=== PATIENT | male | born 1950 | race Caucasian/White ===

== ENCOUNTER 2017-03-01 14:37 | Inpatient (IN) | payer OTHER, MEDICARE ==
[~2017-03-01] VITALS: Ht 177.8 cm; Wt 88.3 kg
[2017-03-01] VITALS (8 sets, daily range): BP systolic 106–179; BP diastolic 63–83; PULSE 81–132; RESP 14–20; TEMP 97–103.1; O2SAT 95–97
[~2017-03-01 14:37] MED LIST: CYCL-36 PO; DICL75 PO; Z.0.NO CURRENT MEDS
[2017-03-01] MEDS ORDERED: FLUT50SP EACH NARE (14:57)
[2017-03-01] MEDS ORDERED: [UNRECOGNIZED DRUG - REMARK] (14:57)
[2017-03-01] MEDS ORDERED: [UNRECOGNIZED DRUG - REMARK] (14:57)
[2017-03-01] MEDS ORDERED: ONE-TAB PO (14:57)
--- NOTE | 2017-03-01 15:13 | PD ---
HPI Chief Complaint: Cold / Flu Symptoms Time Seen by Provider: 15:07 Travel History International Travel<30 days: No Contact w/Intl Traveler<30days: No Traveled to known affect area: No History of Present Illness HPI This 66-year-old male is had a hacking cough for about a year. He says he coughs for periods of time is quite severe. He often vomits after coughing and vomits a large amount of mucus. He saw his doctor and was given some nasal spray which has not helped. He does not smoke cigarettes. Today he had quite a bad paroxysm of coughing and then he vomited 5 or 6 times. He has a history of hereditary hemachromatosis and gets blood removed every 3 months. He recently saw his doctor for rectal bleeding and this has a follow-up appointment with a GI doctor. Today he has a fever which is usually not part of his coughing spells. He does not recall having a chest x-ray during this year that he's been coughing PFSH Past Medical History High Cholesterol: Yes Diminished Hearing: No Musculoskeletal: Yes (OCCASIONAL BACK PAIN) Tetanus Vaccination: Unknown Influenza Vaccination: No Past Surgical History Surgical History: No Previous Surgery Social History Alcohol Use: Yes (6 daily) Tobacco Use: No Substance Use: No Allergies-Medications (Allergen,Severity, Reaction): Coded Allergies: No Known Allergies (Verified Adverse Reaction, Unknown, 03/01/17) Reported Meds & Prescriptions Reported Meds & Active Scripts Active Reported ["Triglyceride Pill"] One-A-Day Essential (Multiple Vitamin) 1 Tab 1 Tab PO DAILY ["Sinus Allergy Pill"] Fluticasone Nasal [place] 50 Mcg/Act Naspr 100 Mcg EACH NARE BID 50 mcg/spray Review of Systems General / Constitutional: Positive: Fever, Chills Eyes: No: Diploplia, Blurred Vision HENT: No: Headaches, Vertigo Cardiovascular: No: Chest Pain or Discomfort, Palpitations Respiratory: Positive: Cough, No: Wheezing Gastrointestinal: No: Nausea, Vomiting Genitourinary: No: Urgency, Frequency Musculoskeletal: No: Myalgias, Arthralgias Skin: No Rash Endocrine: No: Heat Intolerance Hematologic/Lymphatic: No: Easy Bruising Physical Exam Narrative GENERAL: Well-developed male. Temp is 103. Pulse is 120 SKIN: Focused skin assessment warm/dry. HEAD: Atraumatic. Normocephalic. EYES: Pupils equal and round. No scleral icterus. No injection or drainage. ENT: No nasal bleeding or discharge. Mucous membranes pink and moist. NECK: Trachea midline. No JVD. CARDIOVASCULAR: Regular rate and rhythm. No murmur appreciated. RESPIRATORY: No accessory muscle use. Clear to auscultation. There are a few scattered rales GASTROINTESTINAL: Abdomen soft, non-tender, nondistended. Hepatic and splenic margins not palpable. MUSCULOSKELETAL: No obvious deformities. No clubbing. No cyanosis. No edema. NEUROLOGICAL: Awake and alert. No obvious cranial nerve deficits. Motor grossly within normal limits. Normal speech. PSYCHIATRIC: Appropriate mood and affect; insight and judgment normal. Data Data Last Documented VS Vital Signs Date Time Temp Pulse Resp B/P (MAP) Pulse Ox O2 Delivery O2 Flow Rate FiO2 03/01/17 14:57 103.1 117 18 154/69 (97) 97 Room Air Orders Orders Complete Blood Count With Diff (03/01/17 15:07) Comprehensive Metabolic Panel (03/01/17 15:07) Lactic Acid Sepsis Protocol (03/01/17 15:07) Urinalysis - C+S If Indicated (03/01/17 15:07) Influenzae A/B Antigen (03/01/17 15:07) Blood Culture (03/01/17 15:07) Chest, Pa & Lat (03/01/17 15:07) Blood Glucose (03/01/17 15:07) Ecg Monitoring (03/01/17 15:07) Iv Access Insert/Monitor (03/01/17 15:07) Oximetry (03/01/17 15:07) Acetaminophen (Tylenol) (03/01/17 15:15) Sodium Chlor 0.9% 1000 Ml Inj (Ns 1000 M (03/01/17 15:15) Ceftriaxone Inj (Rocephin Inj) (03/01/17 15:44) Azithromycin Inj (Zithromax Inj) (03/01/17 15:44) Labs Laboratory Tests Test 03/01/17 15:22 03/01/17 15:36 White Blood Count 8.1 TH/MM3 Red Blood Count 4.59 MIL/MM3 Hemoglobin 14.8 GM/DL Hematocrit 43.1 % Mean Corpuscular Volume 93.7 FL Mean Corpuscular Hemoglobin 32.1 PG Mean Corpuscular Hemoglobin Concent 34.3 % Red Cell Distribution Width 14.0 % Platelet Count 182 TH/MM3 Mean Platelet Volume 8.0 FL Neutrophils (%) (Auto) 90.2 % Lymphocytes (%) (Auto) 2.7 % Monocytes (%) (Auto) 5.9 % Eosinophils (%) (Auto) 0.1 % Basophils (%) (Auto) 1.1 % Neutrophils # (Auto) 7.3 TH/MM3 Lymphocytes # (Auto) 0.2 TH/MM3 Monocytes # (Auto) 0.5 TH/MM3 Eosinophils # (Auto) 0.0 TH/MM3 Basophils # (Auto) 0.1 TH/MM3 CBC Comment DIFF FINAL Differential Comment Blood Urea Nitrogen 16 MG/DL Creatinine 1.30 MG/DL Random Glucose 92 MG/DL Total Protein 7.8 GM/DL Albumin 3.6 GM/DL Calcium Level 8.9 MG/DL Alkaline Phosphatase 76 U/L Aspartate Amino Transf (AST/SGOT) 28 U/L Alanine Aminotransferase (ALT/SGPT) 38 U/L Total Bilirubin 1.2 MG/DL Sodium Level 139 MEQ/L Potassium Level 3.7 MEQ/L Chloride Level 106 MEQ/L Carbon Dioxide Level 21.5 MEQ/L Anion Gap 12 MEQ/L Estimat Glomerular Filtration Rate 55 ML/MIN Lactic Acid Level 3.2 mmol/L [facility] Medical Decision Making Medical Screen Exam Complete: Yes Emergency Medical Condition: Yes Medical Record Reviewed: Yes Differential Diagnosis Differential includes sepsis, pneumonia, otitis Narrative Course 3 shows patchy right lower lobe airspace disease concerning for pneumonia. His white count is only 8000. His lactate level is 3.2. He's been given IV fluids. Antibiotics have been initiated. He will be admitted Diagnosis Primary Impression: Pneumonia Qualified Codes: J18.1 - Lobar pneumonia, unspecified organism Additional Impression: Sepsis Qualified Codes: A41.9 - Sepsis, unspecified organism Admitting Information Admitting Physician Requests: Admit Grupo Bartholomew MD Mar 01, 2017 15:13
[2017-03-01] MEDS ORDERED: SODIUM CHLOR 0.9% 1000 ML INJ 1,000 ML IV ONE ×2 (15:15→16:15)
[2017-03-01] MEDS ORDERED: ACETAMINOPHEN 325 MG TAB PO ONE (15:15)
[2017-03-01] MEDS ORDERED: cefTRIAXone INJ 2,000 MG in SODIUM CHLORIDE 0.9% INJ 100 ML IV STA (15:44)
[2017-03-01] MEDS ORDERED: AZITHROMYCIN INJ 500 MG in SODIUM CHLOR 0.9% 250 ML INJ 250 ML IV STA (15:44)
[2017-03-01 15:47] LABS: AUTOMATED NEUTROPHIL # 7.3 TH/MM3 (1.8-7.7); BASOPHIL # 0.1 TH/MM3 (0-0.2); BASOPHIL % 1.1 % (0.0-2.0); EOSINOPHIL % 0.1 % (0.0-4.0); HEMATOCRIT 43.1 % (39.0-51.0); HEMOGLOBIN 14.8 GM/DL (13.0-17.0); LYMPH % 2.7 % (9.0-44.0); LYMPHOCYTE # 0.2 TH/MM3 (1.0-4.8); MEAN CELL VOLUME 93.7 FL (80.0-100.0); MEAN CORPUSCULAR HEMOGLOBIN 32.1 PG (27.0-34.0); MEAN CORPUSCULAR HGB CONC 34.3 % (32.0-36.0); MONO % 5.9 % (0.0-8.0); MONOCYTE # 0.5 TH/MM3 (0-0.9); NEUT % 90.2 % (16.0-70.0); PLATELET COUNT 182 TH/MM3 (150-450); RED BLOOD COUNT 4.59 MIL/MM3 (4.50-5.90); WHITE BLOOD COUNT 8.1 TH/MM3 (4.0-11.0)
[2017-03-01 15:50] LABS: CHLORIDE 106 MEQ/L (98-107); SODIUM (NA) 139 MEQ/L (136-145)
--- NOTE | 2017-03-01 15:52 | RADRPT ---
EXAM DATE/TIME: 03/01/2017 15:18 [place] COMPARISON: No previous studies available for comparison. INDICATIONS : Fever, cough. MEDICAL HISTORY : None. SURGICAL HISTORY : None. ENCOUNTER: Initial ACUITY: 1 year PAIN SCORE: 0/10 LOCATION: Bilateral chest FINDINGS: Patchy right lower lobe airspace disease. Cardiomediastinal contours are within normal limits. Bony t horax is intact. CONCLUSION: 1. Patchy right lower lobe airspace disease concerning for pneumonia given symptoms. Dannie Mireles MD on March 01, 2017 at 15:49 Board Certified Radiologist. This report was verified electronically.
[2017-03-01 15:53] LABS: CALCIUM 8.9 MG/DL (8.5-10.1)
[2017-03-01 15:54] LABS: ALBUMIN 3.6 GM/DL (3.4-5.0); BICARBONATE 21.5 MEQ/L (21.0-32.0); BLOOD UREA NITROGEN 16 MG/DL (7-18); GLUCOSE,RANDOM 92 MG/DL (74-106)
[2017-03-01 15:57] LABS: ALT (GPT) 38 U/L (12-78); AST (GOT) 28 U/L (15-37); GLOMERULAR FILTRATION RATE 55 ML/MIN (>89)
[2017-03-01 15:59] LABS: TOTAL BILIRUBIN ADULT 1.2 MG/DL (0.2-1.0); TOTAL PROTEIN 7.8 GM/DL (6.4-8.2)
[2017-03-01 16:00] LABS: BILIRUBIN, URINE NEG (NEG); BLOOD, URINE MOD (NEG); GLUCOSE,URINE NEG (NEG); KETONE, URINE NEG (NEG); NITRITE,URINE NEG (NEG); PH, URINE 5.5 (5.0-8.5); URINE LEUKOCYTE ESTERASE NEG (NEG)
[2017-03-01 16:00] LABS: ALKALINE PHOSPHATASE 76 U/L (45-117); LACTIC ACID SEPSIS PROTOCOL 3.2 mmol/L (0.4-2.0)
--- NOTE | 2017-03-01 16:10 | PD ---
Physical Exam Date Seen by Provider: Mar 01, 2017 Time Seen by Provider: 16:07 Narrative The patient is a 66-year-old male who was initially evaluated by the previous physician, Dr. Lopez. Please refer to the initial history, physical, diagnostic evaluation, and treatment modality plan. The patient was signed out at 4 PM with laboratory evaluation pending. The patient was noted to have pneumonia on chest x-ray. Data Data Last Documented VS Vital Signs Date Time Temp Pulse Resp B/P (MAP) Pulse Ox O2 Delivery O2 Flow Rate FiO2 03/01/17 16:09 106 18 106/66 (79) 97 Room Air 03/01/17 14:57 103.1 Orders Orders Complete Blood Count With Diff (03/01/17 15:07) Comprehensive Metabolic Panel (03/01/17 15:07) Lactic Acid Sepsis Protocol (03/01/17 15:07) Urinalysis - C+S If Indicated (03/01/17 15:07) Influenzae A/B Antigen (03/01/17 15:07) Blood Culture (03/01/17 15:07) Chest, Pa & Lat (03/01/17 15:07) Blood Glucose (03/01/17 15:07) Ecg Monitoring (03/01/17 15:07) Iv Access Insert/Monitor (03/01/17 15:07) Oximetry (03/01/17 15:07) Acetaminophen (Tylenol) (03/01/17 15:15) Sodium Chlor 0.9% 1000 Ml Inj (Ns 1000 M (03/01/17 15:15) Ceftriaxone Inj (Rocephin Inj) (03/01/17 15:44) Azithromycin Inj (Zithromax Inj) (03/01/17 15:44) Sodium Chlor 0.9% 1000 Ml Inj (Ns 1000 M (03/01/17 16:15) Ibuprofen (Motrin) (03/01/17 16:15) Admit To Inpatient (03/01/17 ) Vital Signs (Adult) [email or web address] (03/01/17 16:18) Activity Oob With Assistance (03/01/17 16:18) [employer] / Telemetry [email or web address] (03/01/17 16:18) Sodium Chlor 0.9% 1000 Ml Inj (Ns 1000 M (10/30/17 16:18) Sodium Chloride 0.9% Flush (Ns Flush) (03/01/17 16:30) Sodium Chloride 0.9% Flush (Ns Flush) (03/01/17 21:00) Inpatient Certification (03/01/17 ) Admit Order (Ed Use Only) (03/01/17 ) [employer] / Telemetry [email or web address] (03/01/17 16:18) Vital Signs (Adult) Q4H (03/01/17 16:18) Diet Heart Healthy (03/01/17 Dinner) Activity Oob With Assistance (03/01/17 16:18) Labs Laboratory Tests Test 03/01/17 15:22 03/01/17 15:36 White Blood Count 8.1 TH/MM3 Red Blood Count 4.59 MIL/MM3 Hemoglobin 14.8 GM/DL Hematocrit 43.1 % Mean Corpuscular Volume 93.7 FL Mean Corpuscular Hemoglobin 32.1 PG Mean Corpuscular Hemoglobin Concent 34.3 % Red Cell Distribution Width 14.0 % Platelet Count 182 TH/MM3 Mean Platelet Volume 8.0 FL Neutrophils (%) (Auto) 90.2 % Lymphocytes (%) (Auto) 2.7 % Monocytes (%) (Auto) 5.9 % Eosinophils (%) (Auto) 0.1 % Basophils (%) (Auto) 1.1 % Neutrophils # (Auto) 7.3 TH/MM3 Lymphocytes # (Auto) 0.2 TH/MM3 Monocytes # (Auto) 0.5 TH/MM3 Eosinophils # (Auto) 0.0 TH/MM3 Basophils # (Auto) 0.1 TH/MM3 CBC Comment DIFF FINAL Differential Comment Blood Urea Nitrogen 16 MG/DL Creatinine 1.30 MG/DL Random Glucose 92 MG/DL Total Protein 7.8 GM/DL Albumin 3.6 GM/DL Calcium Level 8.9 MG/DL Alkaline Phosphatase 76 U/L Aspartate Amino Transf (AST/SGOT) 28 U/L Alanine Aminotransferase (ALT/SGPT) 38 U/L Total Bilirubin 1.2 MG/DL Sodium Level 139 MEQ/L Potassium Level 3.7 MEQ/L Chloride Level 106 MEQ/L Carbon Dioxide Level 21.5 MEQ/L Anion Gap 12 MEQ/L Estimat Glomerular Filtration Rate 55 ML/MIN Lactic Acid Level 3.2 mmol/L Urine Color YELLOW Urine Turbidity CLEAR Urine pH 5.5 Urine Specific [place] 1.015 Urine Protein NEG mg/dL Urine Glucose (UA) NEG mg/dL Urine Ketones NEG mg/dL Urine Occult Blood MOD Urine Nitrite NEG Urine Bilirubin NEG Urine Leukocyte Esterase NEG Urine RBC 0-3 /hpf Urine WBC 0-2 /hpf Urine Squamous Epithelial Cells 0-5 /hpf Microscopic Urinalysis Comment CATH-CULT NOT IND MDM Medical Record Reviewed: Yes Supervised Visit with KACI: No Interpretation(s) Last Impressions Chest X-Ray 03/01/17 1507 Signed Impressions: Service Date/Time: Wednesday, March 01, 2017 15:18 - CONCLUSION: 1. Patchy right lower lobe airspace disease concerning for pneumonia given symptoms. Dannie Mireles MD Laboratory Tests Test 03/01/17 15:22 03/01/17 15:36 White Blood Count 8.1 TH/MM3 Red Blood Count 4.59 MIL/MM3 Hemoglobin 14.8 GM/DL Hematocrit 43.1 % Mean Corpuscular Volume 93.7 FL Mean Corpuscular Hemoglobin 32.1 PG Mean Corpuscular Hemoglobin Concent 34.3 % Red Cell Distribution Width 14.0 % Platelet Count 182 TH/MM3 Mean Platelet Volume 8.0 FL Neutrophils (%) (Auto) 90.2 % Lymphocytes (%) (Auto) 2.7 % Monocytes (%) (Auto) 5.9 % Eosinophils (%) (Auto) 0.1 % Basophils (%) (Auto) 1.1 % Neutrophils # (Auto) 7.3 TH/MM3 Lymphocytes # (Auto) 0.2 TH/MM3 Monocytes # (Auto) 0.5 TH/MM3 Eosinophils # (Auto) 0.0 TH/MM3 Basophils # (Auto) 0.1 TH/MM3 CBC Comment DIFF FINAL Differential Comment Blood Urea Nitrogen 16 MG/DL Creatinine 1.30 MG/DL Random Glucose 92 MG/DL Total Protein 7.8 GM/DL Albumin 3.6 GM/DL Calcium Level 8.9 MG/DL Alkaline Phosphatase 76 U/L Aspartate Amino Transf (AST/SGOT) 28 U/L Alanine Aminotransferase (ALT/SGPT) 38 U/L Total Bilirubin 1.2 MG/DL Sodium Level 139 MEQ/L Potassium Level 3.7 MEQ/L Chloride Level 106 MEQ/L Carbon Dioxide Level 21.5 MEQ/L Anion Gap 12 MEQ/L Estimat Glomerular Filtration Rate 55 ML/MIN Lactic Acid Level 3.2 mmol/L Differential Diagnosis differential diagnosis includes sepsis, pneumonia, bronchitis, dehydration, bacteremia, UTI. Narrative Course The patient is a 66-year-old male was initially evaluated by the previous physician, Dr. Lopez. The patient was noted to be febrile, tachycardic with right lower lobe pneumonia on chest x-ray. The patient was administered Rocephin, Zithromax, Tylenol, and 1 L of IV fluids. The patient's lactic acid was noted be elevated at 3.2, white count is normal, however, patient meets sepsis criteria and will be treated for community acquired pneumonia. The patient has [employer], therefore, [facility] were paged for admission. Sepsis Criteria SIRS Criteria (2 or more): Temp > 100.9 or < 96.8, Heart rate over 90 Sepsis Criteria (SIRS+source): Infect source susp/known Severe Sepsis (+one): Lactate >2 Criteria Outcome: Meets severe sepsis criteria Physician Communication Physician Communication [facility] were paged for admission. I discussed the patient with Dr. Fleming who agrees with admission. Diagnosis Primary Impression: Pneumonia Qualified Codes: J18.1 - Lobar pneumonia, unspecified organism Additional Impression: Sepsis Qualified Codes: A41.9 - Sepsis, unspecified organism Admitting Information Admitting Physician Requests: Admit Condition: Stable Deejay Avery MD Mar 01, 2017 16:10
[2017-03-01 16:14] LABS: RBC, URINE 0-3 /hpf (0-3); SQUAMOUS EPITHELIAL CELL URINE 0-5 /hpf (0-5); URINE COLOR YELLOW (YELLW/STRAW); WBC, URINE 0-2 /hpf (0-5)
[2017-03-01] MEDS ORDERED: IBUPROFEN 400 MG TAB PO ONE (16:15)
[2017-03-01] MEDS ORDERED: SODIUM CHLOR 0.9% 1000 ML INJ 1,000 ML IV SCH (16:18)
[2017-03-01] MEDS ORDERED: SODIUM CHLORIDE 0.9% FLUSH 10 ML FLUSH IV FLUSH PRN (16:30)
--- NOTE | 2017-03-01 18:08 | HHI.HP ---
[facility] Julian Echevarria MD Admission Diagnosis right lower lobe pneumonia, sepsis, lactic acidosis Diagnoses: (1) Febrile illness Diagnosis: Principal (2) Pneumonia involving right lung Diagnosis: Principal (3) Sepsis due to Streptococcus pneumoniae Diagnosis: Principal (4) Severe sepsis Diagnosis: Principal Chief Complaint: Cough Travel History International Travel<30 Days: No Contact w/Intl Traveler <30 Da: No Traveled to Known Affected Are: No Sepsis Criteria SIRS Criteria (2 or more): Temp > 100.9 or < 96.8, Heart rate over 90 Sepsis Criteria (SIRS+source): Infect source susp/known Severe Sepsis (+one): Lactate >2 Criteria Outcome: Meets severe sepsis criteria History of Present Illness Written by Shiraz Bello, acting as scribe for Dr. Fleming on 03/01/17 at 17:55. 66-year-old male with known history of hypertriglyceridemia, hemachromatosis who presented to hospital because of cough. Patient states that he has had a cough for 1-1/2 years. He states that is always been a wet cough. He gets worse whenever he stands up. He usually coughs until he vomits up phlegm and the cough usually goes away. However the patient was out mowing the lawn today and he started to cough that approximately 9:30 AM and it would not go away. He tried to vomit without any relief. Since the cough would not go away his brought him to the hospital for evaluation. Patient indicates that he has felt hot with chills. He has a decreased appetite. Has had increased weakness and lightheadedness. He denies any chest pain, nausea, hematemesis, shortness of breath, lower extremity edema. Workup in emergency department, patient was found to have severe sepsis with fever of 103. Chest x-ray indicating right lower lung airspace disease. Patient was recommended admission for further evaluation and management. Review of Systems Constitutional: COMPLAINS OF: Fever, Chills, Dizziness, Change in appetite Respiratory: COMPLAINS OF: Cough Gastrointestinal: COMPLAINS OF: Vomiting Except as stated in HPI: all other systems reviewed are Neg Past Family Social History Past Medical History Hypertriglyceridemia Hemochromatosis followed by Dr. Benjamin Infectious hepatitis at age 25 Past Surgical History Patient denies any previous surgeries Reported Medications Reported Meds & Active Scripts Active Reported ["Triglyceride Pill"] One-A-Day Essential (Multiple Vitamin) 1 Tab 1 Tab PO DAILY ["Sinus Allergy Pill"] Fluticasone Nasal [place] 50 Mcg/Act Naspr 100 Mcg EACH NARE BID 50 mcg/spray Allergies: Coded Allergies: No Known Allergies (Verified Allergy, Unknown, 03/01/17) Family History Reviewed is significant for mother having emphysema, father with colon cancer Social History Patient does smoke approximately 3 cigars a month since age 26. Records indicate that he does drink 6 beers daily. No indication of any illicit drugs Physical Exam Vital Signs Vital Signs Date Time Temp Pulse Resp B/P (MAP) Pulse Ox O2 Delivery O2 Flow Rate FiO2 03/01/17 17:00 103.0 101 17 112/70 (84) 97 Room Air 03/01/17 16:09 106 18 106/66 (79) 97 Room Air 03/01/17 14:57 103.1 117 18 154/69 (97) 97 Room Air 03/01/17 14:41 102.4 132 18 179/83 (115) 95 Physical Exam VS: Afebrile GENERAL: Well-nourished white male, No acute distress, lying in bed, awake SKIN: Warm and dry. EYES: Pupils equal and round. No scleral icterus. No injection or drainage. ENT: No nasal bleeding or discharge. Mucous membranes pink and moist. CARDIOVASCULAR: Regular rate and rhythm. no murmurs RESPIRATORY: No wheeze, rhonchi. Faint expiratory crackles. No use of accessory muscles on inspiration or expiration.. GASTROINTESTINAL: Abdomen soft, non-tender, nondistended. Hepatic and splenic margins not palpable. Extremities: No clubbing, cyanosis, or edema. No obvious deformities. MUSCULOSKELETAL: Extremities without clubbing, cyanosis, or edema. No obvious deformities. grossly intact ROM with 5/5 strength in upper and lower extremities proximally NEUROLOGICAL: Awake and alert. No obvious cranial nerve deficits. No facial droop nor slurred speech noted. PSYCHIATRIC: Appropriate mood and affect; insight and judgment normal. Laboratory Laboratory Tests Test 03/01/17 15:22 03/01/17 15:36 White Blood Count 8.1 Red Blood Count 4.59 Hemoglobin 14.8 Hematocrit 43.1 Mean Corpuscular Volume 93.7 Mean Corpuscular Hemoglobin 32.1 Mean Corpuscular Hemoglobin Concent 34.3 Red Cell Distribution Width 14.0 Platelet Count 182 Mean Platelet Volume 8.0 Neutrophils (%) (Auto) 90.2 Lymphocytes (%) (Auto) 2.7 Monocytes (%) (Auto) 5.9 Eosinophils (%) (Auto) 0.1 Basophils (%) (Auto) 1.1 Neutrophils # (Auto) 7.3 Lymphocytes # (Auto) 0.2 Monocytes # (Auto) 0.5 Eosinophils # (Auto) 0.0 Basophils # (Auto) 0.1 CBC Comment DIFF FINAL Differential Comment Blood Urea Nitrogen 16 Creatinine 1.30 Random Glucose 92 Total Protein 7.8 Albumin 3.6 Calcium Level 8.9 Alkaline Phosphatase 76 Aspartate Amino Transf (AST/SGOT) 28 Alanine Aminotransferase (ALT/SGPT) 38 Total Bilirubin 1.2 Sodium Level 139 Potassium Level 3.7 Chloride Level 106 Carbon Dioxide Level 21.5 Anion Gap 12 Estimat Glomerular Filtration Rate 55 Lactic Acid Level 3.2 Urine Color YELLOW Urine Turbidity CLEAR Urine pH 5.5 Urine Specific [place] 1.015 Urine Protein NEG Urine Glucose (UA) NEG Urine Ketones NEG Urine Occult Blood MOD Urine Nitrite NEG Urine Bilirubin NEG Urine Leukocyte Esterase NEG Urine RBC 0-3 Urine WBC 0-2 Urine Squamous Epithelial Cells 0-5 Microscopic Urinalysis Comment CATH-CULT NOT IND Date/Time Source Procedure Growth Status 03/01/17 15:15 Blood Peripheral Aerobic Blood Culture Pending Received 03/01/17 15:15 Blood Peripheral Anaerobic Blood Culture Pending Received 03/01/17 17:02 Sputum Expectorated Sputum Gram Stain Pending Received 03/01/17 17:02 Sputum Expectorated Sputum Sputum Culture Pending Received Result Diagram: 03/01/17 1522 03/01/17 1522 Imaging Last Impressions Chest X-Ray 03/01/17 1507 Signed Impressions: Service Date/Time: Wednesday, March 01, 2017 15:18 - CONCLUSION: 1. Patchy right lower lobe airspace disease concerning for pneumonia given symptoms. Dannie Mireles MD Septic Shock Reassessment Heart: Regular rate and rhythm Lungs: Crackles Skin: Warm, [place] Peripheral Pulses: Bounding Right Radial Bounding Left Radial Capillary Refill: Brisk, <2 seconds Caprini VTE Risk Assessment Caprini VTE Risk Assessment: Mod/High Risk (score >= 2) Caprini Risk Assessment Model Point Value = 1 Point Value = 2 Point Value = 3 Point Value = 5 Age 41-60 Minor surgery BMI > 25 kg/m2 Swollen legs Varicose veins or History of unexplained or recurrent spontaneous Oral contraceptives or hormone replacement Sepsis (< 1 month) Serious lung disease, including pneumonia (< 1 month) Abnormal pulmonary function Acute myocardial infarction Congestive heart failure (< 1 month) History of inflammatory bowel disease Medical patient at bed rest Age 61-74 Arthroscopic surgery Major open surgery (> 45 min) Laparoscopic surgery (> 45 min) Malignancy Confined to bed (> 72 hours) Immobilizing plaster cast Central venous access Age >= 75 History of VTE Family history of VTE Factor V Leiden Prothrombin [id number] Lupus anticoagulant Anticardiolipin antibodies Elevated serum homocysteine Heparin-induced thrombocytopenia Other congenital or acquired thrombophilia Stroke (< 1 month) Elective arthroplasty Hip, pelvis, or leg fracture Acute spinal cord injury (< 1 month) Prophylaxis Regimen Total Risk Factor Score Risk Level Prophylaxis Regimen 0-1 Low Early ambulation 2 Moderate Order ONE of the following: *Sequential Compression Device (SCD) *Heparin 5000 units SQ BID 3-4 Higher Order ONE of the following medications: *Heparin 5000 units SQ TID *Enoxaparin/Lovenox 40 mg SQ daily (WT < 150 kg, CrCl > 30 mL/min) *Enoxaparin/Lovenox 30 mg SQ daily (WT < 150 kg, CrCl > 10-29 mL/min) *Enoxaparin/Lovenox 30 mg SQ BID (WT < 150 kg, CrCl > 30 mL/min) AND/OR *Sequential Compression Device (SCD) 5 or more Highest Order ONE of the following medications: *Heparin 5000 units SQ TID (Preferred with Epidurals) *Enoxaparin/Lovenox 40 mg SQ daily (WT < 150 kg, CrCl > 30 mL/min) *Enoxaparin/Lovenox 30 mg SQ daily (WT < 150 kg, CrCl > 10-29 mL/min) *Enoxaparin/Lovenox 30 mg SQ BID (WT < 150 kg, CrCl > 30 mL/min) AND *Sequential Compression Device (SCD) Assessment and Plan Assessment and Plan Sepsis 2/2 possible PNA - IVF boluses followed by infusion, lactate elevated to 3.3 - Radiologist read shows possible right lower lung airspace disease, chest x- ray independently reviewed by Dr. Fleming shows no with right lower lung airspace disease - Influenza testing was negative - Sputum cultures pending - Blood cultures are pending - Obtain Legionella, pneumococcal antigen - Continue treatment for community-acquired pneumonia with Rocephin and Zithromax - Acetaminophen as needed for febrile illness DVT prevention - Lovenox This note was transcribed by teresa Bello. IDustin, personally performed the history, physical exam, and medical decision making; and confirmed the accuracy of information in the transcribed note. Authenticated by Dustin Fleming on 03/01/17 at 1855. Physician Certification 2 Midnight Certification Type: Admission for Inpatient Services Order for Inpatient Services The services are ordered in accordance with Medicare regulations or non- Medicare payer requirements, as applicable. In the case of services not specified as inpatient-only, they are appropriately provided as inpatient services in accordance with the 2-midnight benchmark. Estimated LOS (days): 3 3 days is the estimated time the patient will need to remain in the hospital, assuming treatment plan goals are met and no additional complications. Post-Hospital Plan: Home Shiraz Bello Mar 01, 2017 18:08 Dustin Fleming MD Mar 02, 2017 13:11
[2017-03-01] MEDS ORDERED: SENNOSIDES 8.6 MG TAB PO PRN (18:15)
[2017-03-01] MEDS ORDERED: BISACODYL 10 MG SUPP RECTAL PRN (18:15)
[2017-03-01] MEDS ORDERED: ONDANSETRON HCL 4 MG/2 ML VIAL IVP PRN (18:15)
[2017-03-01] MEDS ORDERED: LACTULOSE SYRUP 20 GM/30 ML CUP PO PRN (18:15)
[2017-03-01] MEDS ORDERED: ZOLPIDEM TARTRATE 5 MG TAB PO PRN (18:15)
[2017-03-01] MEDS ORDERED: MAGNESIUM HYDROXIDE SUSP 30 ML CUP PO PRN (18:15)
[2017-03-01] MEDS ORDERED: RESP: ALBUTEROL 2.5 MG/IPRATROPIUM 0.5 MG NEB (PRN) INH (18:15)
[2017-03-01] MEDS: SODIUM CHLORIDE 0.9% FLUSH 10 ML FLUSH IV FLUSH SCH (20:04)
[2017-03-01] MEDS: DOCUSATE SODIUM 50 MG/SENNA 8.6 MG TAB PO SCH (20:04)
[2017-03-01] MEDS: RESP: ALBUTEROL 2.5 MG/IPRATROPIUM 0.5 MG NEB (SCH) INH (20:43)
[2017-03-02 04:00] VITALS: BP 121/67; PULSE 71; RESP 20; TEMP 97.5; O2SAT 95
[2017-03-02] MEDS: SODIUM CHLOR 0.9% 1000 ML INJ 1,000 ML IV SCH ×2 (05:24→16:23)
[2017-03-02] MEDS: RESP: ALBUTEROL 2.5 MG/IPRATROPIUM 0.5 MG NEB (SCH) INH ×3 (07:21→19:58)
[2017-03-02 07:23] VITALS: O2SAT 96
[2017-03-02 08:00] VITALS: BP 139/70; PULSE 74; RESP 18; TEMP 96.7; O2SAT 98
[2017-03-02] MEDS: SODIUM CHLORIDE 0.9% FLUSH 10 ML FLUSH IV FLUSH SCH ×2 (09:00→20:24)
[2017-03-02] MEDS: DOCUSATE SODIUM 50 MG/SENNA 8.6 MG TAB PO SCH ×2 (09:03→20:24)
[2017-03-02] MEDS ORDERED: PNEUMOCOCCAL POLYVALENT INJ 25 MCG/0.5 ML SYR IM ONE (10:00)
[2017-03-02] MEDS ORDERED: INFLUENZA VIRUS VACCINE (QUADRIVALENT) 0.5 ML SYR IM ONE (10:00)
[2017-03-02 12:33] LABS: CREATININE 0.9 MG/DL (0.60-1.30)
[2017-03-02 12:59] LABS: BICARBONATE 20.9 MEQ/L (21.0-32.0); CALCIUM 7.7 MG/DL (8.5-10.1)
--- NOTE | 2017-03-02 13:13 | HHI.PR ---
Subjective Remarks Nursing denies any deterioration since last night. Patient says he feels much better since admission. No nausea, no vomiting. Objective Vital Signs Date Time Temp Pulse Resp B/P (MAP) Pulse Ox O2 Delivery O2 Flow Rate FiO2 03/02/17 08:00 96.7 74 18 139/70 (93) 98 03/02/17 07:23 96 21 03/02/17 04:00 97.5 71 20 121/67 (85) 95 03/01/17 23:00 81 03/01/17 20:40 96 21 03/01/17 20:00 97.0 83 20 123/63 (83) 95 03/01/17 18:45 97.5 87 14 125/70 (88) 95 03/01/17 18:31 03/01/17 17:00 103.0 101 17 112/70 (84) 97 Room Air 03/01/17 16:09 106 18 106/66 (79) 97 Room Air 03/01/17 14:57 103.1 117 18 154/69 (97) 97 Room Air 03/01/17 14:41 102.4 132 18 179/83 (115) 95 I/O 03/01/17 03/01/17 03/01/17 03/02/17 03/02/17 03/02/17 07:00 15:00 23:00 07:00 15:00 23:00 Intake Total 2350 ml 1002 ml Output Total 100 ml Balance -100 ml 2350 ml 1002 ml Intake IV Total 2350 ml 1002 ml Output Urine Total 100 ml # Voids 1 Result Diagram: 03/01/17 1522 03/02/17 1137 Objective Remarks unlabored breathing faint crackles in BL bases, no cyanosis, no clubbing, good color A/P Assessment and Plan Sepsis 2/2 possible PNA - clinically improving - IVFs PNA - afebrile since last night. - Influenza testing was negative - Sputum cultures pending - Blood cultures are pending - Legionella, pneumococcal antigen - Continue treatment for community-acquired pneumonia with Rocephin and Zithromax - Acetaminophen as needed for febrile illness DVT prevention - Lovenox Dustin Fleimng MD Mar 02, 2017 13:13
[2017-03-02] MEDS: ENOXAPARIN SODIUM 40 MG/0.4 ML SYRINGE SQ SCH (13:59)
[2017-03-02 16:00] VITALS: BP 128/72; PULSE 80; RESP 18; TEMP 97; O2SAT 95
[2017-03-02] MEDS: cefTRIAXone INJ 1,000 MG in SODIUM CHLORIDE 0.9% INJ 100 ML IV SCH (16:27)
[2017-03-02] MEDS: AZITHROMYCIN INJ 500 MG in SODIUM CHLOR 0.9% 250 ML INJ 250 ML IV SCH (16:34)
[2017-03-02 19:58] VITALS: O2SAT 97
[2017-03-02 20:00] VITALS: BP 150/70; PULSE 106; PULSE 97; RESP 20; TEMP 99.9; O2SAT 95
[2017-03-02] MEDS ORDERED: FLUMAZENIL 0.5 MG/5 ML VIAL IV PUSH PRN (21:00)
[2017-03-02] MEDS ORDERED: LORazepam 1 MG TAB PO PRN (21:00)
[2017-03-02] MEDS ORDERED: SODIUM CHLORIDE 0.9% FLUSH 10 ML FLUSH IV FLUSH SCH (21:00)
[2017-03-02] MEDS ORDERED: SODIUM CHLORIDE 0.9% FLUSH 10 ML FLUSH IV FLUSH PRN (21:00)
[2017-03-02] MEDS ORDERED: LORazepam 2 MG TAB PO PRN (21:00)
[2017-03-02] MEDS ORDERED: LORazepam 2 MG/ML VIAL IV PUSH PRN ×3 (21:00)
[2017-03-02] MEDS: LORazepam 2 MG/ML VIAL IV PUSH PRN (21:48)
[2017-03-02] MEDS: ACETAMINOPHEN 325 MG TAB PO PRN (22:17)
[2017-03-03] VITALS (9 sets, daily range): BP systolic 119–168; BP diastolic 60–82; PULSE 75–94; RESP 18–20; TEMP 96.1–101.9; O2SAT 94–97
[2017-03-03] MEDS: SODIUM CHLOR 0.9% 1000 ML INJ 1,000 ML IV SCH (00:36)
[2017-03-03] MEDS: LORazepam 2 MG/ML VIAL IV PUSH PRN (00:41)
[2017-03-03] MEDS: RESP: ALBUTEROL 2.5 MG/IPRATROPIUM 0.5 MG NEB (SCH) INH ×3 (07:34→19:38)
[2017-03-03] MEDS: MULTIVITAMINS/MINERALS THERAPEUTIC TAB PO SCH (08:31)
[2017-03-03] MEDS: FOLIC ACID 1 MG TAB PO SCH (08:31)
[2017-03-03] MEDS: DOCUSATE SODIUM 50 MG/SENNA 8.6 MG TAB PO SCH ×2 (08:31→20:25)
[2017-03-03] MEDS: SODIUM CHLORIDE 0.9% FLUSH 10 ML FLUSH IV FLUSH SCH ×2 (08:31→20:25)
[2017-03-03] MEDS: THIAMINE HCL 100 MG TAB PO SCH (08:31)
[2017-03-03] MEDS: BENZONATATE 100 MG CAP PO PRN ×2 (09:54→20:25)
[2017-03-03 10:52] LABS: CALCIUM 7.8 MG/DL (8.5-10.1)
--- NOTE | 2017-03-03 10:55 | HHI.PR ---
Subjective Remarks Patient complains of cough productive of clear sputum. He had a low-grade fever around midnight of 100.8. Patient denies dyspnea but does get slightly short of breath during a coughing fit. Patient is stable on room air oxygen. Objective Vitals Vital Signs Date Time Temp Pulse Resp B/P (MAP) Pulse Ox O2 Delivery O2 Flow Rate FiO2 03/03/17 08:00 98.0 88 20 168/82 (110) 96 03/03/17 07:36 97 21 03/03/17 04:00 96.1 75 20 133/80 (97) 97 03/03/17 00:43 100.8 94 20 127/76 (93) 95 03/02/17 20:00 99.9 97 20 150/70 (96) 95 03/02/17 20:00 106 03/02/17 19:58 97 21 03/02/17 16:00 97.0 80 18 128/72 (90) 95 I/O 03/02/17 03/02/17 03/02/17 03/03/17 03/03/17 03/03/17 07:00 15:00 23:00 07:00 15:00 23:00 Intake Total 1002 ml 1242 ml 120 ml Balance 1002 ml 1242 ml 120 ml Intake Oral 240 ml 120 ml IV Total 1002 ml 1002 ml # Voids 2 1 # Bowel Movements 0 0 Result Diagram: 03/01/17 1522 03/03/17 1020 Objective Remarks GENERAL: Well-nourished, well-developed pleasant male patient. SKIN: Warm and dry. HEAD: Normocephalic. EYES: No scleral icterus. No injection or drainage. NECK: Supple, trachea midline. No JVD or lymphadenopathy. CARDIOVASCULAR: Regular rate and rhythm without murmurs, gallops, or rubs. RESPIRATORY: Breath sounds equal bilaterally. Clear to auscultation bilaterally. No accessory muscle use. GASTROINTESTINAL: Abdomen soft, non-tender, nondistended. EXTREMITIES: No cyanosis, or edema. NEUROLOGICAL: Awake, alert, and oriented x 3. Non-focal. No upper extremity tremors. A/P Problem List: (1) Pneumonia involving right lung ICD Code: J18.9 - Pneumonia, unspecified organism Status: Acute (2) Sepsis due to Streptococcus pneumoniae ICD Code: A40.3 - Sepsis due to Streptococcus pneumoniae (3) Severe sepsis ICD Code: A41.9 - Sepsis, unspecified organism; R65.20 - Severe sepsis without septic shock Assessment and Plan -Right lower lobe consolidation, pneumonia with sepsis features, presumptive strep pneumonia etiology. Clinically improving however had fever last night. He is stable on room air. Lactic acid now normal will Hep-Lock IV. Blood cultures negative for 1 day, urine antigens for strep pneumonia and legionella were negative. Sputum culture is pending. We'll continue Rocephin and Zithromax. Duo nebs. -Alcohol abuse - drinks 6 beers daily. Continue CIWA protocol. Symptoms mild. -Hypokalemia. Will replete orally. Repeat BMP in the morning. -DVT prophylaxis with SCDs Problem Qualifiers (1) Pneumonia involving right lung: Qualified Codes: J13 - Pneumonia due to Streptococcus pneumoniae Keesha Finn MD Mar 03, 2017 10:55
[2017-03-03 10:56] LABS: CREATININE 0.77 MG/DL (0.60-1.30)
[2017-03-03] MEDS ORDERED: POTASSIUM CHLORIDE 10 MEQ CONTROLLED RELEASE TAB PO ONE (11:15)
[2017-03-03 11:42] LABS: MAGNESIUM 1.9 MG/DL (1.5-2.5)
[2017-03-03] MEDS: ENOXAPARIN SODIUM 40 MG/0.4 ML SYRINGE SQ SCH (14:54)
[2017-03-03] MEDS: cefTRIAXone INJ 1,000 MG in SODIUM CHLORIDE 0.9% INJ 100 ML IV SCH (17:28)
[2017-03-03] MEDS: AZITHROMYCIN INJ 500 MG in SODIUM CHLOR 0.9% 250 ML INJ 250 ML IV SCH (17:38)
[2017-03-03] MEDS: ACETAMINOPHEN 325 MG TAB PO PRN (20:24)
[2017-03-04] VITALS (8 sets, daily range): BP systolic 138–153; BP diastolic 68–86; PULSE 74–85; RESP 16–24; TEMP 97.8–100; O2SAT 94–98
[2017-03-04 06:58] LABS: BICARBONATE 21.4 MEQ/L (21.0-32.0); CALCIUM 8.1 MG/DL (8.5-10.1)
[2017-03-04 07:02] LABS: CREATININE 0.8 MG/DL (0.60-1.30)
[2017-03-04] MEDS: RESP: ALBUTEROL 2.5 MG/IPRATROPIUM 0.5 MG NEB (SCH) INH ×3 (07:20→19:32)
[2017-03-04] MEDS: THIAMINE HCL 100 MG TAB PO SCH (08:30)
[2017-03-04] MEDS: MULTIVITAMINS/MINERALS THERAPEUTIC TAB PO SCH (08:30)
[2017-03-04] MEDS: SODIUM CHLORIDE 0.9% FLUSH 10 ML FLUSH IV FLUSH SCH ×2 (08:31→22:02)
[2017-03-04] MEDS: DOCUSATE SODIUM 50 MG/SENNA 8.6 MG TAB PO SCH ×2 (08:31→21:00)
[2017-03-04] MEDS: FOLIC ACID 1 MG TAB PO SCH (08:31)
--- NOTE | 2017-03-04 09:21 | HHI.PR ---
Subjective Remarks Patient states that he feels improved with decreasing cough. No shortness of breath. Still had fevers overnight. Objective Vitals Vital Signs Date Time Temp Pulse Resp B/P (MAP) Pulse Ox O2 Delivery O2 Flow Rate FiO2 03/04/17 08:00 99.9 84 24 138/80 (99) 96 03/04/17 07:23 95 21 03/04/17 04:00 100.0 74 20 140/76 (97) 98 03/04/17 00:00 98.3 77 20 138/68 (91) 96 03/03/17 20:45 99.8 03/03/17 20:00 101.9 91 18 119/60 (79) 95 03/03/17 19:38 97 21 03/03/17 16:00 99.1 88 19 140/78 (98) 95 03/03/17 12:00 100.1 89 19 144/75 (98) 94 I/O 03/03/17 03/03/17 03/03/17 03/04/17 03/04/17 03/04/17 07:00 15:00 23:00 07:00 15:00 23:00 Intake Total 120 ml 1002 ml 868 ml 480 ml Balance 120 ml 1002 ml 868 ml 480 ml Intake Oral 120 ml 480 ml 480 ml IV Total 1002 ml 388 ml # Voids 1 2 2 # Bowel Movements 0 0 0 Result Diagram: 03/01/17 1522 03/04/17 0523 Objective Remarks GENERAL: Well-nourished, well-developed pleasant male patient. SKIN: Warm and dry. HEAD: Normocephalic. EYES: No scleral icterus. No injection or drainage. NECK: Supple, trachea midline. No JVD or lymphadenopathy. CARDIOVASCULAR: Regular rate and rhythm without murmurs, gallops, or rubs. RESPIRATORY: Breath sounds equal bilaterally. Clear to auscultation bilaterally. No accessory muscle use. GASTROINTESTINAL: Abdomen soft, non-tender, nondistended. EXTREMITIES: No cyanosis, or edema. NEUROLOGICAL: Awake, alert, and oriented x 3. Non-focal. No upper extremity tremors. A/P Problem List: (1) Pneumonia involving right lung ICD Code: J18.9 - Pneumonia, unspecified organism Status: Acute (2) Sepsis due to Streptococcus pneumoniae ICD Code: A40.3 - Sepsis due to Streptococcus pneumoniae (3) Severe sepsis ICD Code: A41.9 - Sepsis, unspecified organism; R65.20 - Severe sepsis without septic shock Assessment and Plan -Right lower lobe consolidation, pneumonia with sepsis features, presumptive strep pneumonia etiology. He is stable on room air however continues to have fevers. Will check chest CT rule out empyema. Continue Rocephin and Zithromax. Lactic acid now normal will Hep-Lock IV. Blood cultures negative for 2 days, urine antigens for strep pneumonia and legionella were negative. Sputum culture with heavy growth normal respiratory micky. -Alcohol abuse - drinks 6 beers daily. Continue CIWA protocol. Symptoms mild. -Hypokalemia. Will replete orally. Repeat BMP in the morning. -DVT prophylaxis with SCDs Problem Qualifiers (1) Pneumonia involving right lung: Qualified Codes: J13 - Pneumonia due to Streptococcus pneumoniae Keesha Finn MD Mar 04, 2017 09:21
[2017-03-04] MEDS: ENOXAPARIN SODIUM 40 MG/0.4 ML SYRINGE SQ SCH (13:32)
--- NOTE | 2017-03-04 14:04 | RADRPT ---
EXAM DATE/TIME: 03/04/2017 12:24 [facility] COMPARISON: No previous studies available for comparison. INDICATIONS : Chronic cough. Abnormal chest x-ray. Evaluate for pneumonia. RADIATION DOSE: 16.77 CTDIvol (mGy) MEDICAL HISTORY : None SURGICAL HISTORY : None. ENCOUNTER: Initial ACUITY: 4 - 6 days PAIN SCALE: 0/10 LOCATION: Right chest TECHNIQUE: Volumetric scanning of the chest was performed. Using automated exposure control and adjustment of t he mA and/or kV according to patient size, radiation dose was kept as low as reasonably achievable to obtain optimal diagnostic quality images. DICOM format image data is available electronically for r eview and comparison. Follow-up recommendations for detected pulmonary nodules are based at a minimum on nodule size and pa tient risk factors according to Fleischner Society Guidelines. FINDINGS: There is extensive right lower lobe pneumonia with air bronchograms. Underlying neoplasm cannot be ex cluded. Followup examination is recommended if clinically indicated. Examination of the mediastinum demonstrates no abnormally enlarged lymph nodes by CT criteria. No axi llary or hilar abnormalities are identified. Coronary artery calcifications are not present. The visu alized upper abdomen demonstrates no abnormality. 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 Underlying neoplas m is not excluded. Followup examination to insure clearing is recommended. 1. Chad Cardoso MD on March 04, 2017 at 13:57 Board Certified Radiologist. This report was verified electronically.
[2017-03-04] MEDS: ACETAMINOPHEN 325 MG TAB PO PRN (15:36)
[2017-03-04] MEDS: cefTRIAXone INJ 1,000 MG in SODIUM CHLORIDE 0.9% INJ 100 ML IV SCH (15:38)
[2017-03-04] MEDS: AZITHROMYCIN INJ 500 MG in SODIUM CHLOR 0.9% 250 ML INJ 250 ML IV SCH (16:23)
[2017-03-04] MEDS: BENZONATATE 100 MG CAP PO PRN (22:06)
[2017-03-05] VITALS: BP 145/89; PULSE 70; RESP 20; TEMP 98.5; O2SAT 97
[2017-03-05 04:00] VITALS: BP 145/79; PULSE 71; RESP 20; TEMP 98.8; O2SAT 95
[2017-03-05] MEDS: RESP: ALBUTEROL 2.5 MG/IPRATROPIUM 0.5 MG NEB (SCH) INH (07:39)
[2017-03-05 07:55] VITALS: O2SAT 95
[2017-03-05 09:00] VITALS: BP 155/82; PULSE 88; RESP 20; TEMP 98.6; O2SAT 95
[2017-03-05] MEDS: MULTIVITAMINS/MINERALS THERAPEUTIC TAB PO SCH (09:40)
[2017-03-05] MEDS: THIAMINE HCL 100 MG TAB PO SCH (09:40)
[2017-03-05] MEDS: DOCUSATE SODIUM 50 MG/SENNA 8.6 MG TAB PO SCH (09:40)
[2017-03-05] MEDS: FOLIC ACID 1 MG TAB PO SCH (09:40)
[2017-03-05] MEDS: SODIUM CHLORIDE 0.9% FLUSH 10 ML FLUSH IV FLUSH SCH (09:41)
[2017-03-05] MEDS ORDERED: LEVA750T9 PO (11:29)
[2017-03-05] MEDS: ACETAMINOPHEN 325 MG TAB PO PRN (11:41)
--- NOTE | 2017-03-05 11:55 | HHI.DS ---
Discharge Summary Admission Date Mar 01, 2017 at 16:20 Discharge Date: Mar 05, 2017 Admitting Diagnosis right lower lobe pneumonia, sepsis, lactic acidosis (1) Pneumonia involving right lung ICD Code: J18.9 - Pneumonia, unspecified organism Status: Acute (2) Sepsis due to Streptococcus pneumoniae ICD Code: A40.3 - Sepsis due to Streptococcus pneumoniae (3) Severe sepsis ICD Code: A41.9 - Sepsis, unspecified organism; R65.20 - Severe sepsis without septic shock Procedures None Brief History - From Admission 66-year-old male with known history of hypertriglyceridemia, hemachromatosis who presented to hospital because of cough. Patient states that he has had a cough for 1-1/2 years. He states that is always been a wet cough. He gets worse whenever he stands up. He usually coughs until he vomits up phlegm and the cough usually goes away. However the patient was out mowing the lawn today and he started to cough that approximately 9:30 AM and it would not go away. He tried to vomit without any relief. Since the cough would not go away his brought him to the hospital for evaluation. Patient indicates that he has felt hot with chills. He has a decreased appetite. Has had increased weakness and lightheadedness. He denies any chest pain, nausea, hematemesis, shortness of breath, lower extremity edema. Workup in emergency department, patient was found to have severe sepsis with fever of 103. Chest x-ray indicating right lower lung airspace disease. Patient was recommended admission for further evaluation and management. CBC/BMP: 03/01/17 1522 03/04/17 0523 Significant Findings Laboratory Tests Test 03/03/17 10:20 03/04/17 05:23 Calcium Level 7.8 MG/DL (8.5-10.1) 8.1 MG/DL (8.5-10.1) Potassium Level 3.2 MEQ/L (3.5-5.1) 3.4 MEQ/L (3.5-5.1) Chloride Level 108 MEQ/L (98-107) PE at Discharge GENERAL: Well-nourished, well-developed pleasant male patient. SKIN: Warm and dry. HEAD: Normocephalic. EYES: No scleral icterus. No injection or drainage. NECK: Supple, trachea midline. No JVD or lymphadenopathy. CARDIOVASCULAR: Regular rate and rhythm without murmurs, gallops, or rubs. RESPIRATORY: Breath sounds equal bilaterally. Clear to auscultation bilaterally. No accessory muscle use. GASTROINTESTINAL: Abdomen soft, non-tender, nondistended. EXTREMITIES: No cyanosis, or edema. NEUROLOGICAL: Awake, alert, and oriented x 3. Non-focal. No upper extremity tremors. Hospital Course Patient was admitted to the hospital and treated with Rocephin and Zithromax. He did not require oxygen. Cough improved however was still persistent. He was having intermittent fevers. Because of this a chest CT was ordered. Chest CT showed a 9 cm area of alveolar disease in the right lower lobe characteristic pneumonia however the radiologist could not rule out an underlying neoplasm and recommended a follow-up examination to ensure clearing. I did discuss this with the patient. Patient does have a history of secondhand smoke exposure as his parents smoke in the house. He has never smoked himself. The patient states he also had some rectal bleeding several weeks ago and has been referred for colonoscopy in the next several weeks. Patient was provided a copy of this chest CT and instructed to follow-up with his primary care physician next week and to get a repeat chest CT in 3 weeks to ensure that this is not a neoplasm. Patient voices understanding. Patient was afebrile overnight. He did have one fever just before lunch. However he has no white count has been stable on room air. I believe he will do well on Levaquin orally. He is instructed to return to the ER should he develop worsening symptoms or shortness of breath. Pt Condition on Discharge: Stable Discharge Disposition: Discharge Home Discharge Time: > 30 minutes Discharge Instructions DIET: Follow Instructions for: As Tolerated, No Restrictions Activities you can perform: Regular-No Restrictions Follow up Referrals: PCP Follow-up - 3-5 Days New Medications: Levofloxacin (Levaquin) 750 Mg Tablet 750 MG PO DAILY for Infection, #7 TAB 0 Refills Benzonatate (Tessalon Perles) 100 Mg Cap 200 MG PO TID PRN for cough, #90 CAP Continued Medications: Fluticasone Nasal [place] (Fluticasone Nasal [place]) 50 Mcg/Act Naspr 100 MCG EACH NARE BID for Allergy Management, #1 BOTTLE 0 Refills 50 mcg/spray Multiple Vitamin (One-A-Day Essential) 1 Tab 1 TAB PO DAILY for Nutritional Supplement, TAB 0 Refills ["Sinus Allergy Pill"] () ["Triglyceride Pill"] () Keesha Finn MD Mar 05, 2017 11:55
[2017-03-05] MEDS ORDERED: BENZ100 PO (11:56)
[2017-03-05 12:00] VITALS: BP 149/86; PULSE 76; RESP 18; TEMP 100.1; O2SAT 96
[2017-03-05] MEDS: ENOXAPARIN SODIUM 40 MG/0.4 ML SYRINGE SQ SCH (13:13)
== END 2017-03-05 13:55 | disposition home or self-care (01) | DRG 871 ==
LOC: PHED 14:37 → PHEDA 16:20 → PH3A 18:23
PROVIDERS: ADMIT Family Medicine; ATTEND Family Medicine
DX: A40.3 Sepsis due to Streptococcus pneumoniae (principal); J13 Pneumonia due to Streptococcus pneumoniae; R65.20 Severe sepsis without septic shock; E87.2 Acidosis; E78.1 Pure hyperglyceridemia; F17.290 Nicotine dependence, other tobacco product, uncomplicated; E87.6 Hypokalemia; F10.10 Alcohol abuse, uncomplicated; E83.119 Hemochromatosis, unspecified; Z23 Encounter for immunization
CPT/HCPCS: 71020; 71250; 80048; 80053; 81001; 82948; 83605; 83735; 85025; 87040; 87070; 87205; 87449; 87804; 90471; 90686; 90732; 94150; 94640; 94664; 96365; G0008; G0009; J0456; J0696; J1650; J2060; J7030; J7050; Q2038